=== PATIENT | male | born 2000 | race Caucasian/White ===

== ENCOUNTER 2022-06-06 11:32 | Emergency (ER) | payer OTHER, SELFPAY ==
--- NOTE | ~2022-06-06 | CT_ITS ---
EXAMINATION: CT abdomen pelvis wo IV con CLINICAL INFORMATION: Reason for Exam LLQ colicky pain COMPARISON: No prior CT available for comparison. TECHNIQUE: Multidetector volumetric imaging was performed from the superior aspect of the liver through the pubic symphysis a noncontrasted study. Sagittal and coronal reformatted images were obtained on the technologist's workstation. This CT examination was performed using dose optimization techniques as appropriate, variously including the following: *Automated exposure control *Adjustment of mA and/or kV according to patient size (this includes techniques or standardized protocols for targeted exams where dose is matched to indication/reason for exam; i.e. extremities or head) *Use of iterative reconstruction technique DLP: 589 mGy-cm FINDINGS: LOWER THORAX: Included lung bases are clear. HEPATOBILIARY: No focal hepatic lesions. No biliary ductal dilatation. GALLBLADDER: Gallbladder unremarkable. SPLEEN: Spleen is normal in size. PANCREAS: No focal mass or ductal dilatation. STOMACH AND GASTROINTESTINAL TRACT: Stomach is grossly unremarkable. There is no bowel distention or thickening. No CT evidence of appendicitis. ADRENALS: No adrenal nodules. KIDNEYS/URETERS: There is a 2 cm cyst middle pole left kidney not well characterized on this noncontrast CT, kidneys otherwise normal, no stone or hydronephrosis. URINARY BLADDER: Partially decompressed. PELVIC VISCERA: Unremarkable PERITONEUM: No free air or fluid. LYMPH NODES: No lymphadenopathy. VASCULAR:Abdominal aorta normal in size, no aneurysm found. BONES, ABDOMINAL WALL AND SOFT TISSUES: Age-appropriate changes of the spine and skeletal system, no destructive osteolytic or osteosclerotic bone lesion found CT/CT abdomen pelvis wo IV con IMPRESSION: * No CT evidence of acute intra-abdominal process to explain patient's pain symptoms. No evidence of bowel obstruction. No kidney stone or hydronephrosis. * There is 2 cm cyst middle pole left kidney not well characterized on this noncontrast CT scan, consider correlation with follow-up renal ultrasound.
--- NOTE | 2022-06-06 11:49 | ED_ITS ---
HPI - General Adult General Chief complaint: Abdominal Pain Stated complaint: N/V W/ABD PAIN SINCE AM Time Seen by Provider: 06/06/22 11:37 Source: patient Limitations: no limitations History of Present Illness HPI narrative: This is a 22-year-old male who states that he has had URI symptoms for few days with nasal congestion but no fever, no significant cough, mild sore throat. Patient today developed severe pain in his left lower abdomen which is constant but waxes and wane in intensity and has been associated nausea and vomiting. Patient noted his urine was dark this morning but he is not sure if there was any blood in it. 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 He denies any diarrhea. Pain is severe, not worse with movement. Related Data Allergies Allergy/AdvReac Type Severity Reaction Status Date / Time No Known Allergies Allergy Verified 06/06/22 11:43 Review of Systems Review of Systems: Patient is somewhat anxious and restless appearing, hyperventilating, flinching in anticipation of my palpating his abdomen Yes all other systems are reviewed and are negative Constitutional: Constitutional: Reports as per HPI and Denies fever(s) Eyes: Eyes: Reports as per HPI and Reports no additional eye complaints ENT: Reports as per HPI, Reports nasal congestion, Reports nasal discharge and Reports sore throat Cardiovascular: Cardiovascular: Reports as per HPI, Denies chest pain and Denies dyspnea Respiratory: Respiratory: Reports as per HPI, Denies cough and Denies dyspnea Gastrointestinal: Gastrointestinal: Reports as per HPI, Reports abdominal pain, Denies diarrhea, Reports nausea and Reports vomiting Genitourinary: Genitourinary: Reports as per HPI, Denies dysuria and Denies urinary frequency Comments: Urine dark this morning Musculoskeletal: Musculoskeletal: Reports no additional musculoskeletal complaints and Denies numbness Integumentary/Breasts: Skin/Breast: Reports as per HPI and Denies rash Neurologic: Reports as per HPI, Denies focal weakness and Denies numbness Psychiatric: Psychiatric: Reports no additional psychiatric complaints and Reports as per HPI Endocrine: Endocrine: Reports no additional endocrine complaints and Reports as per HPI Hematologic/Lymphatic: Hematologic/Lymphatic: Reports no additional hematologic/lymphatic complaints, Reports as per HPI and Reports other (No peripheral edema) [facility] Social History Social History Alcohol intake: never Smoked in Last 30 Days: No Use of substances other than those prescribed or required for medical reasons: No Advance Directives: No Physical Exam ED Vital Signs: Vital Signs - 24 hr 06/06/22 12:08 Temperature 98.6 F Pulse Rate 61 Respiratory Rate 18 Blood Pressure 106/48 L Pulse Oximetry 100 Oxygen Delivery Method Room Air BMI result Body Mass Index 27.3 Medications Administered Discontinued Medications Generic Name Dose Route Start Last Admin Trade Name Freq PRN Reason Stop Dose Admin Ketorolac Tromethamine 30 mg 06/06/22 11:43 06/06/22 12:24 Ketorolac Tromethamine 30 Mg/Ml Vial IVPUSH 06/06/22 11:44 30 mg ONCE ONE Administration Lorazepam 0.5 mg 06/06/22 11:43 06/06/22 12:25 Lorazepam 2 Mg/Ml Vial IVPUSH 06/06/22 11:44 0.5 mg ONCE ONE Administration Ondansetron HCl 4 mg 06/06/22 11:43 06/06/22 12:25 Ondansetron Hcl 4 Mg/2 Ml Vial IVPUSH 06/06/22 11:44 4 mg ONCE ONE Administration Medical Decision Making Medical Decision Making [facility] Narrative: Patient with URI symptoms, but he might have COVID, which she does. Patient also had severe left lower abdominal pain this morning, causing him to writhe in pain. Patient did have microscopic hematuria consistent with ureteral colic. CT scan did not show stone however the patient may have already passed the stone before CT scan was done, as patient had relief of his pain about that time. Patient was treated with Toradol 15 mg IV as well as lorazepam 1 mg IV. Patient had improvement in his symptoms, felt much better. Patient is young and healthy and Paxlovid is not indicated Differential Diagnosis Differential Diagnoses: The differential diagnosis associated with the presentation includes Renal colic, UTI, pyelonephritis, diverticulitis, anxiety Lab Data [facility] Lab Attestation statement: I reviewed the patient's lab results. Result Diagrams: 06/06/22 14:28 06/06/22 14:27 Labs: Lab Results 06/06/22 06/06/22 06/06/22 Range/Units 13:24 13:24 14:27 WBC (4.8-10.8) X10*3/uL RBC (4.60-5.80) X10*6/uL Hgb (14.0-18.0) g/dl Hct (42.0-52.0) % MCV (80.0-98.0) fL MCH (27.0-33.0) pg MCHC (31.0-36.0) g/dl RDW (11.0-16.0) % Plt Count (160-400) X10*3/uL MPV (9.4-12.4) fL Immature Gran % (Auto) (0.0-0.4) % Neut % (Auto) (45-73) % Lymph % (Auto) (20-40) % [place] % (Auto) (2-11) % Eos % (Auto) (0-4) % Baso % (Auto) (0-2) % Lymph # (Auto) (1.2-4.9) X10*3/uL [place] # (Auto) (0.1-1.2) X10*3/uL Eos # (Auto) (0.0-0.4) X10*3/uL Baso # (Auto) (0.0-0.2) X10*3/uL Abs Immat Gran (auto) (0.00-0.03) X10*3/uL Absolute Neuts (auto) (2.0-8.3) x10*3/uL Absolute Nucleated RBC (0.0-0.012) X10*3/uL Nucleated RBC % (auto) (0.0-0.2) /100WBC Sodium 142 (135-145) mmol/L Potassium 4.2 (3.3-5.1) mmol/L Chloride 108 (96-108) mmol/L Carbon Dioxide 26 (22-29) mmol/L Anion Gap 12 (12-20) BUN 11 (9-16) mg/dL Creatinine 0.82 (0.5-1.4) mg/dL Estim Creat Clear Calc 141.3 Estimated GFR > 60 Random Glucose 94 (60-115) mg/dL Calcium 9.7 (8.4-10.2) mg/dL Total Bilirubin 0.5 (0.0-1.0) mg/dL AST 17 (5-37) U/L ALT 20 (0-40) U/L Alkaline Phosphatase 53 (39-117) U/L Total Protein 7.0 (6.5-8.0) g/dL Albumin 4.5 (3.5-5.0) g/dL Urine Color Yellow Urine Appearance Clear Urine pH 8.5 (5.0-9.0) Ur Specific [place] 1.020 (1.005-1.025) Urine Protein Trace (Neg-Trace) mg/dL Urine Glucose (UA) Negative (Negative) mg/dL Urine Ketones Negative (Negative) mg/dL Urine Blood Moderate (2+) H (Negative) Urine Nitrite Negative (Negative) Ur Leukocyte Esterase Negative (Negative) Urine RBC >20 H (0-2) /HPF Urine WBC 6-10 H (0-5) /HPF Ur Squamous Epith Cells 0-2 (0-2) /HPF Urine Bacteria None Seen (None Seen) Hyaline Casts 0-2 (0-2) /LPF COVID-19 (ALESSANDRO) Positive A (Negative) COVID-19 Clin Com See Note 06/06/22 Range/Units 14:28 WBC 8.1 (4.8-10.8) X10*3/uL RBC 4.70 (4.60-5.80) X10*6/uL Hgb 13.3 L (14.0-18.0) g/dl Hct 39.5 L (42.0-52.0) % MCV 84.0 (80.0-98.0) fL MCH 28.3 (27.0-33.0) pg MCHC 33.7 (31.0-36.0) g/dl RDW 12.8 (11.0-16.0) % Plt Count 212 (160-400) X10*3/uL MPV 9.9 (9.4-12.4) fL Immature Gran % (Auto) 0.2 (0.0-0.4) % Neut % (Auto) 81.9 H (45-73) % Lymph % (Auto) 10.3 L (20-40) % [place] % (Auto) 7.3 (2-11) % Eos % (Auto) 0.1 (0-4) % Baso % (Auto) 0.2 (0-2) % Lymph # (Auto) 0.8 L (1.2-4.9) X10*3/uL [place] # (Auto) 0.6 (0.1-1.2) X10*3/uL Eos # (Auto) 0.0 (0.0-0.4) X10*3/uL Baso # (Auto) 0.0 (0.0-0.2) X10*3/uL Abs Immat Gran (auto) 0.02 (0.00-0.03) X10*3/uL Absolute Neuts (auto) 6.6 (2.0-8.3) x10*3/uL Absolute Nucleated RBC 0.000 (0.0-0.012) X10*3/uL Nucleated RBC % (auto) 0.0 (0.0-0.2) /100WBC Sodium (135-145) mmol/L Potassium (3.3-5.1) mmol/L Chloride (96-108) mmol/L Carbon Dioxide (22-29) mmol/L Anion Gap (12-20) BUN (9-16) mg/dL Creatinine (0.5-1.4) mg/dL Estim Creat Clear Calc Estimated GFR Random Glucose (60-115) mg/dL Calcium (8.4-10.2) mg/dL Total Bilirubin (0.0-1.0) mg/dL AST (5-37) U/L ALT (0-40) U/L Alkaline Phosphatase (39-117) U/L Total Protein (6.5-8.0) g/dL Albumin (3.5-5.0) g/dL Urine Color Urine Appearance Urine pH (5.0-9.0) Ur Specific [place] (1.005-1.025) Urine Protein (Neg-Trace) mg/dL Urine Glucose (UA) (Negative) mg/dL Urine Ketones (Negative) mg/dL Urine Blood (Negative) Urine Nitrite (Negative) Ur Leukocyte Esterase (Negative) Urine RBC (0-2) /HPF Urine WBC (0-5) /HPF Ur Squamous Epith Cells (0-2) /HPF Urine Bacteria (None Seen) Hyaline Casts (0-2) /LPF COVID-19 (ALESSANDRO) (Negative) COVID-19 Clin Com Radiology Impression Discussion of test interpretation with radiology: I have reviewed the radiologist's reading. Radiologist Impression: IMPRESSION: ? *? No CT evidence of acute intra-abdominal process to explain patient's pain symptoms. No evidence of bowel obstruction. No kidney stone or hydronephrosis. ? *? There is 2 cm cyst middle pole left kidney not well characterized on this noncontrast CT scan, consider correlation with follow-up renal ultrasound. Discharge Plan Discharge Clinical Impression: COVID-19, Ureterolithiasis Patient Disposition: Home, Self-Care Instructions: COVID-19 (Coronavirus Disease 2019) (ED) Additional Instructions: Drink plenty of fluids. You may have had a kidney stone which passed already, causing the severe but transient pain in her left lower abdomen. The blood in your urine is suggestive of this. CT scan did not show the stone but the stone may have already passed when the CT was done. You also have COVID. Quarantine at home for the next 5 days, then make sure to wear mask in public for an additional week. Use acetaminophen or ibuprofen for pain or fever.
[2022-06-06 12:08] VITALS: BP 106/48; PULSE 61; RESP 18; TEMP 37; O2SAT 100; BMI 27.3
[2022-06-06] MEDS: Ketorolac Tromethamine 30 MG/ML VIAL IVPUSH (12:24)
[2022-06-06] MEDS: ondansetron HCL 4 MG/2 ML VIAL IVPUSH (12:25)
[2022-06-06] MEDS: LORazepam 2 MG/ML VIAL 0.5 MG IVPUSH (12:25)
[2022-06-06 13:34] LABS: Appearance Urine Clear; Color Urine Yellow; Glucose Urine UA Negative (Negative); Leukocyte Esterase Urine Negative (Negative); Nitrite Urine Negative (Negative); PH 8.5 (5.0-9.0); UMIC TRIGGER UACC YES; Urine Blood Moderate (2+) (Negative); Urine Ketones Negative (Negative); Urine Protein Trace mg/dL (Neg-Trace)
[2022-06-06 13:37] LABS: Bacteria Urine None Seen (None Seen); Hyaline Casts Urine 0-2 /LPF (0-2); RBC Urine >20 /HPF (0-2); Squamous Epithelial Cell Urine 0-2 /HPF (0-2); UACC Culture Trigger YES
[2022-06-06 13:39] LABS: COVID-19 Test Positive (Negative); IDNOW Serial# 6674DD1D
[2022-06-06 14:36] LABS: MANUAL DIFF FLAG NO
[2022-06-06 14:37] LABS: Basophils Percent Auto 0.2 % (0-2); Eosinophils Percent Auto 0.1 % (0-4); Hematocrit 39.5 % (42.0-52.0); Hemoglobin 13.3 g/dl (14.0-18.0); Imm Gran Abs Auto 0.02 X10*3/uL (0.00-0.03); Imm Gran Pct Auto 0.2 % (0.0-0.4); Lymphocytes Absolute Auto 0.8 X10*3/uL (1.2-4.9); Lymphocytes Percent Auto 10.3 % (20-40); Mean Corpuscular HGB Conc 33.7 g/dl (31.0-36.0); Mean Corpuscular Hemoglobin 28.3 pg (27.0-33.0); Mean Platelet Volume 9.9 fL (9.4-12.4); Monocytes Absolute Auto 0.6 X10*3/uL (0.1-1.2); Monocytes Percent Auto 7.3 % (2-11); Neutrophils Absolute Auto 6.6 x10*3/uL (2.0-8.3); Neutrophils Percent Auto 81.9 % (45-73); Platelet Count 212 X10*3/uL (160-400); Red Cell Distribution Width 12.8 % (11.0-16.0); White Blood Count 8.1 X10*3/uL (4.8-10.8)
[2022-06-06 15:00] LABS: Alanine Aminotransferase 20 U/L (0-40); Albumin Level 4.5 g/dL (3.5-5.0); Alkaline Phosphatase 53 U/L (39-117); Anion Gap 12 (12-20); Aspartate Amino Transferase 17 U/L (5-37); Bilirubin Total 0.5 mg/dL (0.0-1.0); Blood Urea Nitrogen 11 mg/dL (9-16); Calcium 9.7 mg/dL (8.4-10.2); Carbon Dioxide 26 mmol/L (22-29); Chloride 108 mmol/L (96-108); Creatinine Clr Calc Pharmacy 141.3; Estimated Glomerular Filt Rate > 60; Glucose Random 94 mg/dL (60-115); Potassium 4.2 mmol/L (3.3-5.1); Sodium 142 mmol/L (135-145)
== END 2022-06-06 15:29 | disposition home or self-care (01) ==
PROVIDERS: Emergency Provider Emergency Medicine; PCP Pediatrics
DX: U07.1 COVID-19 (principal); N20.1 Calculus of ureter
CPT/HCPCS: 36415; 74176; 80053; 81001; 85025; 87086; 87635; 96374; 96375; 99284; J1885; J2060; J2405

== ENCOUNTER 2024-07-11 07:49 | Outpatient (AMB) | payer OTHER, SELFPAY ==
--- OUTSIDE RECORDS SUMMARY | 2024-07-11 07:51 | XMS_ITS | Clinical Summary ---
Author Organization [facility] Address [address] [place] [id number] Phone Care Team Providers Care Take Off Man Name Role Phone Unavailable Primary Care Provider Unavailabl e Allergies No known active allergies Medications Chlorpheniramine Maleate (ALLERGY PO) Take by mouth. Active Immunizations Name Administration Dates Next Due DTaP 12/02/2005, 2,2000,09/23,2000 HPV Vaccine 9 Valent 09/05/2015 HPV, Quadrivalent 08/29/2014,06/25/2014 Hep A, ped/adol 09/13/2018,09/09/2017 Hep B, ped/adol 02/22/2001,2000,2000 Hib (PRP-T) 08/25/2001, 1,2000,07/30 IPV 12/02/2005, 1,2000,07/30 Influenza, injectable, quadrivalent 02/2019,09/05/2015,06/25/2014,06/23,06/01/2011 Influenza, injectable, quadr ivalent, preservative free 02/09/2020 Influenza, injectable, triva lent, preservative free 05/03/2002 MMR 07/01/2004,05/27/2001 Meningococcal Conj (Menactra) MCV4P 09/09/2017,1 08/02/2010 Pneumococcal Conjugate 08/25/2001,2000,2000,07/30 Tdap 06/01/2011 Varicella 12/07/2007,05/27/2001 Family History Medical History Relation Name Comments No Known Problems Brother 1 Cayden No Known Problems Brother 2 Umang Asthma Father Prostate cancer Father No Known Problems Father's Brother No Known Problems Father's Sister Brain Aneurysm Maternal Grandmother Aneurysm Mother carotid anurisi m 09/04/16 with good recovery some memory issues Hypertension Mother Lung cancer Paternal Grandfather Breast cancer Paternal Grandmother Colon cancer Paternal Grandmother Relation Name Status Comments Brother 1 Cayden Alive Brother 2 Umang Alive Father Alive Father's Brother Alive Father's Sister Alive Maternal Grandfather goodpas ture syndrome age: 74 Maternal Grandmother Alive Mother Alive hypertension; c arotid anurisim 09/04/16 with good recovery some memory issues diagnosed with Asthma, unspecified Paternal Grandfather Paternal Grandmother Social History Tobacco Use Types Packs/Day Years Used Date Smoking Tobacco: Never Smokeless Tobacco: Never Alcohol Use Standard Drinks/Week Comments Never 0 (1 standard drink = 0.6 oz pur e alcohol) Hunger/Food Answer Date Recorded In the last 12 months, did y ou or your family ever eat less than you felt you should because there wasn't enough money for food? No 02/09/2020 Stable Housing Answer Date Recorded Are you worried that in the next 2 months you may not have stable housing? No 02/09/2020 Transportation Concerns Answer Date Rec orded In the last 12 months, have you or your family ever had to go without healthcare because you didn't have a way to get there? No 02/09/2020 Hazards in Home Answer Date Recorded Think about the place you li ve. Do you have problems with any of the following? Pests (mice or roaches), mold, no/not working smoke detectors, water leaks, no window guards. No 2019 Financing Utilities Answer Date Recorde d In the last 12 months, has t he electric, gas, oil, or water company threatened to shut off your services in your home? No 02/09/2020 Safety at Home Answer Date Recorded Are you or your family worried about feeling saf e in your home? No 02/09/2020 Outside Support Answer Date Recorded Do you feel that you need mo re support from other people or programs to help you care for yourself or your family? No 02/09/2020 Understanding Health Concerns Answer Da te Recorded Do you need help understandi ng your or your child's healthcare needs (diagnosis, medications, plan, etc.)? No 02/09/2020 Financing Health Concerns Answer Date R ecorded In the last 12 months, was t here a time when your child needed to see a doctor or get medications or supplies but could not because of cost? No 02/09/2020 Missing School or Work Answer Date Zach rded Did you or your child miss s chool or work because of a health problem that could have been avoided? No 02/09/2020 Sex and Gender Information Value Date Recorded Sex Assigned at Male 02/09/2020 9:45 AM EDT Legal Sex Male 6:09 PM EDT Gender Identity Male 02/09/2020 9:45 AM EDT Sexual Orientation Lesbian or Ramey 02/09/2020 9: 45 AM EDT Last Filed Vital Signs Vital Sign Reading Time Taken Comments Blood Pressure 120/50 02/09/2020 8:30 AM EDT Pulse - - Temperature 36.2 ??C (97.1 ??F) 06/23/2013 12:[address] Respiratory Rate - - Oxygen Saturation - - Inhaled Oxygen Concentration - - Weight 88.1 kg (194 lb 3.2 oz) 02/09/2020 8:30 A M EDT Height 175.9 cm (5' 9.25 ) 02/09/2020 8:30 AM ED T Body Mass Index 28.47 02/09/2020 8:30 AM EDT Plan of Treatment Health Maintenance Due Date Last Done Comments DTaP,Tdap,and Td Vaccines (7 - Td or Tdap) 06/01/2021 06/01/2011, 12/02/2005, 08/25/2001, Additional history exists Influenza Vaccines (#1) 2024 02/09/20, 09/13/2018, 09/05/2015, Additional history exists COVID-19 Vaccine ( season) 2024 Hepatitis B Vaccines Completed 02/22/2001, 2000, 2000 HIB Vaccines Completed 08/25/2001, 11/05, 2000, Additional history exists Pneumococcal Vaccine Completed 08/25/2001, 2000, 2000, Additional history exists MMR Vaccines Completed 07/01/2004, 05/27/2001 IPV Vaccines Completed 12/02/2005, 02/05, 2000, Additional history exists Varicella Vaccines Completed 12/07/2007, 05/27/2001 HPV Vaccines Completed 09/05/2015, 08/06, 06/25/2014 Meningococcal Vaccine Completed 09/09/2017, 011 Hepatitis A Vaccines Completed 09/13/2018, 09/10/19 18 Men B Vaccine Aged Out No longer elig ible based on patient's age to complete this topic Insurance [facility] NON PCC
--- OUTSIDE RECORDS SUMMARY | 2024-07-11 07:51 | XMS_ITS | Encounter Summary ---
Author Organization [facility] Address [address] [place] [id number] Phone Care Team Providers Care Chain Puller Name Role Phone Jose L Thomas MD Primary Care Provider Encounter Details Date Type Department Care Team (Late st Contact Info) Description 10/24/2017 Conversion Encounter [facility] [address] [place] [address] Social History Tobacco Use Types Packs/Day Years Used Date Smoking Tobacco: Never Assessed Sex and Gender Information Value Date Recorded Sex Assigned at Male 02/09/2020 9:45 AM EDT Legal Sex Male 6:09 PM EDT Gender Identity Male 02/09/2020 9:45 AM EDT Sexual Orientation Lesbian or Ramey 02/09/2020 9: 45 AM EDT documented as of this encounter Plan of Treatment Not on file documented as of this encounter Visit Diagnoses Not on filedocumented in this encounter Care Teams Chain Puller Relationship Specialty Start Date End Date Jose L Thomas MD [address] [place] [address] PCP - General Pediatrics 09/13/18 04/17/24 documented as of this encounter
[2024-07-11 08:15] VITALS: BP 114/78; PULSE 74; O2SAT 98; BMI 35.6
--- NOTE | 2024-07-11 08:15 | MHC.PC.OV ---
Vital Signs 07/11/24 08:15 Height 5 ft 9 in Weight 241 lb BMI 35.6 BP 114/78 Blood Pressure Location Lt brachial Position Sitting Pulse 74 Pulse Source Pulse Oximeter Pulse Oximetry (%) 98 Oxygen Delivery Method Room Air Intake Visit Reasons: establish care Second Baller Required: No Allergies No Known Allergies Allergy (Verified 07/11/24 08:28) Medication List - Last Reconciled 07/11/24 by Rafaela Ramirez PA-C venlafaxine ER (Effexor XR) 75 mg PO DAILY Tobacco use date assessed: 07/11/24 Dental Screening Dental Screen Date: 07/11/24 Did you have a dental visit in the last 12 months?: Yes Did you have a dental problem in the last 6 months where you did not have access to dental care?: No Was dental information given to patient?: Patient has dentist HPI establish care HPI Details 24-year-old male coming to the office for the 1st time. [place] [facility] [place] last seen 04/2023. He follows with [facility] every 2 months for management of Effexor and has a counselor through his school ([facility]) that he sees every 2 weeks. He feels he is doing well on the Effexor and has tried Zoloft in the past but had side effects to this medication. He recently saw the dentist and was concerned about a foreign body feeling in his left tonsil and does have a history of tonsil stones and tonsillitis. The foreign body feeling has been present for two months and is worse with eating. Denies any difficulty or painful swallowing. [facility] Family History Mother Diabetes Brain aneurysm Father No problems noted. Brother No problems noted. Brother No problems noted. Other Mental health disorder Substance use disorder Social History Housing: Apartment Alcohol intake: never Patient Tobacco Use Status: Never used Tobacco Tobacco use type: Cigarette e-Cigarette/Vaping Use: Currently Using Second Hand Smoke Exposure: Yes service: No Current occupational status: employed Current occupation: [employer] Current occupational exposures/hazards: No Cognitive needs: No Hearing needs: No Vision needs: Yes Questionnaire PHQ-9 Over the last 2 weeks, how often have you been bothered by any of the following problems? 1. Little interest or pleasure in doing things: not at all 2. Feeling down, depressed, or hopeless: several days 3. Trouble falling or staying asleep, or sleeping too much: not at all 4. Feeling tired or having little energy: several days 5. Poor appetite or overeating: several days 6. Feeling bad about yourself - or that you are a failure or have let yourself or your family down: several days 7. Trouble concentrating on things, such as reading the newspaper or watching television: not at all 8. Moving or speaking so slowly that other people could have noticed. Or the opposite - being so fidgety or restless that you have been moving around a lot more than usual: not at all 9. Thoughts that you would be better off or of hurting yourself in some way: not at all Total score: 4 Depression Screening Interpretation: Positive Depression Screening Follow-up: Existing condition and In treatment Depression Screening Done: Yes 57301 - PHQ-9 Billing: Yes Source: Developed by Drs. Jose L Abreu, Lana Traore, Randy Munson and colleagues, with an educational tariq from [employer]. Thrive Questionnaire Date Thrive assessed: 07/11/24 I am a: Patient What is your living situation today?: I have a steady place to live Within the past 12 months, did the food you bought not last and you didn't have the money to get more?: Never true Within the past 12 months, did you worry whether your food would run out before you got money to buy more?: Never true Do you have trouble paying for medicines?: No Do you have trouble getting transportation to medical appointments?: No Do you have trouble paying your heating and electricity bill?: No Do you have trouble taking care of your child, family member or friend?: No Do you have trouble with day-to-day activities such as bathing, preparing meals, shopping, managing finances, etc.?: No Are you currently unemployed and looking for a job?: No Are you interested in more education?: No Please select the resources that you would like help with: None Currently or been in a relationship where the following occur: No concerns reported THRIVE Score: 0 AUDIT C Alcohol Use Questionnaire (AUDIT-C) 1. How often do you have a drink containing alcohol?: Monthly or less 2. How many drinks containing alcohol do you have on a typical day when you are drinking?: 1 or 2 3. How often do you have six or more drinks on one occasion?: Less than monthly Total Score: 2 ROBERTA-7 AMB Questionnaire ROBERTA-7 Date ROBERTA - 7 assessed: 07/11/24 Feeling nervous, anxious, or on edge: 1 = Several days Not being able to stop or control worryin = Several days Worrying too much about different things: 1 = Several days Trouble relaxin = Several days Being so restless that it is hard to sit still: 1 = Several days Becoming easily annoyed or irritable: 1 = Several days Feeling afraid as if something awful might happen: 1 = Several days Total ROBERTA-7 score (0-4 normal; 5-9 mild; 10-14 moderate; 15-21 severe): 7 Source: Developed by Drs. Jose L Abreu, Lana Traore, Randy Munson and colleagues, with an educational tariq from [employer]. ROBERTA-7 Assessment Billing ROBERTA-7 Assessment Tool: ROBERTA-7 Assessment 44366 Review of Systems Const Denies body aches, Denies chills, Denies fever(s), Denies headache(s) and Denies poor appetite Eyes Reports no additional complaints ENT Denies dysphagia, Denies dizziness, Denies headache(s) and Denies odynophagia Card Denies chest pain, Denies lightheadedness and Denies dyspnea Resp Denies cough and Denies dyspnea GI Denies abdominal pain, Denies dysphagia, Denies nausea, Denies odynophagia and Denies vomiting Reports no additional complaints Musc Reports no additional complaints and Denies abnormal gait Skin/Breast Reports system reviewed and no additional complaints, except as documented Neuro Denies abnormal gait, Denies dizziness and Denies headache(s) Psych Reports no additional complaints Physical exam (Primary Care) Vital Signs: Last Vital Signs Pulse 74 07/11/24 08:15 BP 114/78 07/11/24 08:15 Pulse Ox 98 07/11/24 08:15 Oxygen Delivery Method Room Air 07/11/24 08:15 BMI result Body Mass Index 35.6 Tobacco/Smoking Status: Tobacco use Status Tobacco use date assessed 07/11/24 07/11/24 08:22 Patient Tobacco Use Status Never used Tobacco 07/11/24 08:22 Tobacco use type Cigarette 07/11/24 08:22 e-Cigarette/Vaping Use Currently Using 07/11/24 08:22 PHQ-9: PHQ-9 Score PHQ-9: Total score 4 07/11/24 08:22 Depression Screening Interpretation: Positive Depression Screening Follow-up: Existing condition and In treatment Thrive Assessment: Date of Thrive Assessment Date Thrive assessed 07/11/24 07/11/24 08:22 Currently or been in a relationship where the following occur: No concerns reported Const General: cooperative, healthy appearing, comfortable and no acute distress Orientation/consciousness: patient oriented x3 HENMT Head: Yes normocephalic Ears: hearing grossly normal bilaterally General nose exam: Normal external nose present Mouth: Normal oral and palatal mucosa present and oropharynx normal Teeth and gingiva: dentition normal Throat: Yes posterior oropharynx normal and Yes tonsils normal (Grade II no visualized stones) Eyes General: appearance normal, both eyes and all related structures Conjunctivae: conjunctivae normal Neck Neck: Yes full ROM and Yes no lymphadenopathy Resp Effort & Inspection: normal respiratory effort Auscultation: clear to auscultation bilaterally, no crackles, no rales, no rhonchi and no wheezes Cardio Rate: regular rate Rhythm: regular rhythm Skin General skin exam: no rashes or lesions noted Neuro General: patient oriented x3 Gait exam (Neuro): Normal gait present Extrem General: Yes normal to inspection, Yes full ROM and No edema Psych Affect: normal affect Attitude: cooperative Insight: Good insight present (Psych) Judgement: Good judgement present (Psych) Coding Level of Care Code New Pt Level 4 (33967) Diagnoses Anxiety F41.9 Depression F32.A Obesity (BMI 30-39.9) E66.9 Tonsil stone J35.8 Additional Codes ROBERTA-7 Assessment Billing - ROBERTA-7 Assessment Tool: ROBERTA-7 Assessment 72510 ([id number]) PHQ-9 - 17137 - PHQ-9 Billing: Yes ([id number]) Assessment & Plan Assessment & Plan (1) Anxiety: Comment: [facility] every 2 months, counselor every 2 weeks ([facility]) Code(s): F41.9 - Anxiety disorder, unspecified Category: Medical Plan: Feels well managed on Effexor and counselor. Symptoms are well managed at this time. (2) Depression: Comment: [facility] every 2 months, counselor every 2 weeks ([facility]) Code(s): F32.A - Depression, unspecified Category: Medical Plan: Feels well managed on Effexor and counselor. Symptoms are well managed at this time. (3) Obesity (BMI 30-39.9): Code(s): E66.9 - Obesity, unspecified Category: Medical Plan: Healthy diet and regular exercise is encouraged. (4) Tonsil stone: Code(s): J35.8 - Other chronic diseases of tonsils and adenoids Category: Medical Plan: No tonsil stones seen on exam today. Advised patient to try salt water gargles and practice good oral hygiene. Also advised patient can use blunt syringe with warm water to gently flush the tonsils as needed. Offered ENT referral which was declined at this time. If patient would like referral can place one going forward. Plan Will plan to have blood work done and follow up in 6 months for annual exam. Patient to follow up sooner if new problems arise. This note was constructed using voice recognition software. While every effort has been made to ensure accuracy and curbing stonecutter, still areas may have been included sometimes these areas may affect the content or meeting of the given symptoms. Total time spent caring for the patient today was 30 minutes. This includes time spent before the visit reviewing the chart, time spent during the visit, and time spent after the visit and documentation. Orders: Orders Comprehensive Met. Panel Today Z00.00 - Encounter for general adult medical examination without abnormal findings Complete Blood Count Auto Diff Today Z00.00 - Encounter for general adult medical examination without abnormal findings Vitamin D 25-OH Total Today Z00.00 - Encounter for general adult medical examination without abnormal findings TSH reflex Free T4 Today Z00.00 - Encounter for general adult medical examination without abnormal findings Free T4 (Free Thyroxine) Today Z00.00 - Encounter for general adult medical examination without abnormal findings Vitamin B12 and Folate Today Z00.00 - Encounter for general adult medical examination without abnormal findings
== END 2024-07-11 08:44 | disposition home or self-care (01) ==
DX: J35.8 Other chronic diseases of tonsils and adenoids (principal); F41.9 Anxiety disorder, unspecified; E66.9 Obesity, unspecified; Z68.35 Body mass index [BMI] 35.0-35.9, adult; F32.A Depression, unspecified

== ENCOUNTER → 2024-07-11 07:49 | Outpatient (BNVA) | payer OTHER, SELFPAY | DX: F41.9 Anxiety disorder, unspecified (principal); F32.A Depression, unspecified; E66.9 Obesity, unspecified; J35.8 Other chronic diseases of tonsils and adenoids | CPT/HCPCS: 96127; 99202 ==

== ENCOUNTER 2024-07-11 08:58 | Outpatient (REF) | payer OTHER, SELFPAY ==
[2024-07-11 10:23] LABS: MANUAL DIFF FLAG NO
[2024-07-11 10:52] LABS: Basophils Percent Auto 0.6 % (0-2); Eosinophils Absolute Auto 0.1 X10*3/uL (0.0-0.4); Hemoglobin 14.8 g/dl (14.0-18.0); Imm Gran Abs Auto 0.02 X10*3/uL (0.00-0.03); Imm Gran Pct Auto 0.3 % (0.0-0.4); Lymphocytes Absolute Auto 2.1 X10*3/uL (1.2-4.9); Lymphocytes Percent Auto 31.4 % (20-40); Mean Corpuscular HGB Conc 33.6 g/dl (31.0-36.0); Mean Corpuscular Hemoglobin 28.7 pg (27.0-33.0); Mean Corpuscular Volume 85.3 fL (80.0-98.0); Mean Platelet Volume 9.9 fL (9.4-12.4); Monocytes Absolute Auto 0.6 X10*3/uL (0.1-1.2); Monocytes Percent Auto 8.8 % (2-11); Neutrophils Absolute Auto 3.7 x10*3/uL (2.0-8.3); Neutrophils Percent Auto 56.9 % (45-73); Platelet Count 298 X10*3/uL (160-400); Red Blood Count 5.16 X10*6/uL (4.60-5.80); Red Cell Distribution Width 12.5 % (11.0-16.0); White Blood Count 6.6 X10*3/uL (4.8-10.8)
[2024-07-11 11:23] LABS: Alanine Aminotransferase 71 U/L (0-40); Albumin Level 4.5 g/dL (3.5-5.0); Alkaline Phosphatase 65 U/L (39-117); Anion Gap 15 (12-20); Aspartate Amino Transferase 44 U/L (5-37); Bilirubin Total 0.3 mg/dL (0.0-1.0); Blood Urea Nitrogen 10 mg/dL (9-16); Calcium 9.5 mg/dL (8.4-10.2); Carbon Dioxide 29 mmol/L (22-29); Chloride 103 mmol/L (96-108); Estimated Glomerular Filt Rate > 60; Free T4 (Free Thyroxine) 0.84 ng/dL (0.71-1.85); Glucose Random 101 mg/dL (60-115); Potassium 4.4 mmol/L (3.3-5.1); Sodium 143 mmol/L (135-145); TSH reflex Free T4 1.13 uIU/mL (0.32-4.0); Total Protein 7.7 g/dL (6.5-8.0)
[2024-07-11 11:35] LABS: Folate 11.5 ng/mL (> or = 4.0); Vitamin B12 331 pg/mL (200-900)
[2024-07-11 12:34] LABS: HBc Num1 0.09 S/CO (0.00-0.79); HBsAGNum1 0.38 S/CO (0.00-0.99); Hepatitis B Core Antibody Nonreactive (Nonreactive); Hepatitis B Surface Antigen Negative (Negative); ~HepC Num1 0.11 S/CO (0.00-0.79); ~Hepatitis B Surface Antibody NONREACTIVE (Nonreactive); ~Hepatitis C Antibody Nonreactive (Nonreactive)
== END 2024-07-11 08:59 | disposition home or self-care (01) ==
LOC: HO.10HDL 08:58
DX: Z00.00 Encounter for general adult medical examination without abnormal findings (principal); R79.89 Other specified abnormal findings of blood chemistry
CPT/HCPCS: 36415; 80053; 82306; 82607; 82746; 84439; 84443; 85025; 86704; 86706; 86803; 87340

== ENCOUNTER 2024-08-03 08:58 | Outpatient (REF) | payer OTHER, SELFPAY ==
--- NOTE | ~2024-08-03 | US_ITS ---
CLINICAL HISTORY: R79.89 - Other specified abnormal findings of blood chemistry US abdomen complete with duplex and color Doppler Comparison: None Findings: The visualized pancreas, aorta, and inferior vena cava are unremarkable. Liver normal size and mildly echogenic Right lobe 16.3 cm length. No focal hepatic masses. Common duct 1.6 mm diameter. Physiologic distention of the gallbladder. No gallstones or sludge. No gallbladder wall thickening. No pericholecystic fluid. No sonographic Martin sign. Main portal vein antegrade. Right kidney normal size, 11.9 cm in length. Normal cortical width and echotexture. No solid or cystic renal masses. Equivocal 3 mm nonobstructing caliceal stone midpole Left kidney normal, 11.7 cm in length. Normal cortical width and echotexture. Renal cortical cyst upper pole measuring 1.9 x 2.4 x 2.1 cm.No nephrolithiasis or hydronephrosis. Spleen measures 11.6 cm. No splenic masses. No ascites. No lymphadenopathy. Impression: 1. Hepatic steatosis. 2. Nephrolithiasis on the right. 3. Benign renal cortical cyst left kidney. This document has been electronically signed by: Poncho Pinto MD on 08/03/2024 10:48:01
--- OUTSIDE RECORDS SUMMARY | 2024-08-03 09:35 | XMS_ITS | Encounter Summary ---
Author Organization [facility] Address [address] [place], [place] [id number] Phone Care Team Providers Care Filing Machine Operator Name Role Phone Jose L Thomas MD Primary Care Provider [phone] Encounter Details Date Type Department Care Team (Late st Contact Info) Description 10/24/2017 Conversion Encounter [facility] [address] [place] [address] Social History Tobacco Use Types Packs/Day Years [...] on filedocumented in this encounter Care Teams Filing Machine Operator Relationship Specialty Start Date End Date Jose L Thomas MD [address] [place] [address] PCP - General Pediatrics 09/13/18 04/17/24 documented as of this encounter
--- OUTSIDE RECORDS SUMMARY | 2024-08-03 09:35 | XMS_ITS | Clinical Summary ---
Author Organization [facility] Address [address] [place] [phone] Phone Care Team Providers Care Environmental Geologist Name Role Phone Unavailable Primary Care Provider Unavailabl e Allergies No known active allergies Medications Chlorpheniramine Maleate (ALLERGY PO) Take by mouth. Active Immunizations Immunization Administration Dates Next Due DTaP 12/02/2005, 2,2000,09/23,2000 [...] patient's age to complete this topic Insurance [facility] NON PCC
== END 2024-08-03 08:59 | disposition home or self-care (01) ==
LOC: HO.HMGCX 08:58
DX: R79.89 Other specified abnormal findings of blood chemistry (principal)
CPT/HCPCS: 76700

== ENCOUNTER → 2024-08-03 08:59 | Outpatient (BNV) | payer OTHER, SELFPAY | PROVIDERS: Visit Provider Radiology Diagnostic Radiology | DX: K76.0 Fatty (change of) liver, not elsewhere classified (principal); N20.0 Calculus of kidney; N28.1 Cyst of kidney, acquired | CPT/HCPCS: 76700 ==

== ENCOUNTER 2024-11-01 09:07 | Outpatient (REF) | payer OTHER, SELFPAY ==
--- OUTSIDE RECORDS SUMMARY | 2024-11-01 09:40 | XMS_ITS | Clinical Summary ---
Author Organization [facility] Address [address] [place] [phone] Phone Care Team Providers Care Ic Designer Custom Name Role Phone Unavailable Primary Care Provider [...] patient's age to complete this topic Insurance [facility] NON PCC
[2024-11-04 15:28] LABS: TS Negative Control Passed; TS Panel A 0; TS Panel B 0; TS Positive Control Passed; TSpotTB Negative (Negative)
== END 2024-11-01 09:08 | disposition home or self-care (01) ==
LOC: HO.HMGCLDS 09:07
DX: Z00.00 Encounter for general adult medical examination without abnormal findings (principal)
CPT/HCPCS: 36415; 86481

== ENCOUNTER 2024-11-07 10:56 | Outpatient (REF) | payer OTHER, SELFPAY ==
--- OUTSIDE RECORDS SUMMARY | 2024-11-07 12:32 | XMS_ITS | Clinical Summary ---
Author Organization [facility] Address [address] [place] [phone] Phone Care Team Providers Care Projects Manager Name Role Phone Unavailable Primary Care Provider [...] patient's age to complete this topic Insurance [facility] NON PCC
[2024-11-08 04:53] LABS: Hepatitis B Surface Ab Qnt <5 mIU/mL (> OR = 10)
== END 2024-11-07 10:57 | disposition home or self-care (01) ==
LOC: HO.HMGCLDS 10:56
DX: Z00.00 Encounter for general adult medical examination without abnormal findings (principal)
CPT/HCPCS: 36415; 86317

== ENCOUNTER 2024-12-06 11:41 | Outpatient (AMB) | payer OTHER, SELFPAY ==
--- NOTE | 2024-12-06 11:49 | AM.OFFVISNUR ---
Intake Visit Reasons: Hep B vaccine Allergies No Known Allergies Allergy (Verified 07/11/24 08:28) Immunizations Recombivax HB (PF) 10 mcg/mL intramuscular suspension Performing Provider: Rafaela Ramirez PA-C [facility] [place] [facility] Administered by: Tarah Michael LPN on 12/06/24 11:49 Dose Route Admin Location Dispensed Lot Number Expiration Date [facility] Data Control Clerk 1 mL IM Left Deltoid 1 mL [id number] 01/02/27 66323-157-49 [employer] Total Dispensed Waste 1 mL 0 % VIS Given Date VIS Provided VIS Publication Date 12/06/24 Single Vaccine 22 Eligibility Eligibility Date Funding Source Not [facility] Eligible 12/06/24 Private Assessment & Plan Assessment & Plan Orders: Orders Hepatitis B Adult Immunization Today Z23 - Encounter for immunization Coding
--- OUTSIDE RECORDS SUMMARY | 2024-12-06 12:28 | XMS_ITS | Clinical Summary ---
Author Organization [facility] Address [address] [place] [phone] Phone Care Team Providers Care Case Filler Name Role Phone Unavailable Primary Care Provider [...] AM EDT Pulse - - Temperature 36.2 C (97.1 F) 06/23/2013 12:00 AM EST Respiratory Rate - - Oxygen Saturation - [...] 06/01/2021 06/01/2011, 12/02/2005, 08/25/2001, Additional history exists COVID-19 Vaccine ( season) 2024 Influenza Vaccines (#1) 2025 02/09/20 20, 09/13/2018, 09/05/2015, Additional history exists Hepatitis B Vaccines Completed 02/22/2001, 2000, 2000 [...] patient's age to complete this topic Insurance [facility] NON [facility]
== END 2024-12-06 11:51 | disposition home or self-care (01) ==
LOC: HO.HMCH 11:42
DX: Z23 Encounter for immunization (principal)

== ENCOUNTER → 2024-12-06 11:41 | Outpatient (BNVA) | payer OTHER, SELFPAY | DX: Z23 Encounter for immunization (principal) | CPT/HCPCS: 90471; 90746 ==

== ENCOUNTER 2025-01-08 07:50 | Outpatient (AMB) | payer OTHER, SELFPAY ==
--- OUTSIDE RECORDS SUMMARY | 2025-01-08 07:53 | XMS_ITS | Clinical Summary ---
Author Organization [facility] Address [address] [place] [phone] Phone Care Team Providers Care Assisted Living Coordinator Name Role Phone Unavailable Primary Care Provider [...] patient's age to complete this topic Insurance [facility] NON [facility]
--- NOTE | 2025-01-08 08:12 | MHC.PC.OV ---
Vital Signs 01/08/25 08:13 01/08/25 08:33 Height 5 ft 9 in Weight 223 lb 4 oz BMI 33.0 BP 140/64 H 118/66 Blood Pressure Location Lt brachial Lt brachial Position Sitting Sitting Pulse 76 Pulse Source Pulse Oximeter Temp 97.1 F Temp Source Temporal Artery Scan Pulse Oximetry (%) 96 Oxygen Delivery Method Room Air Intake Visit Reasons: Annual Exam Intake Note: Patient is here today for a physical. Keno Attendant Required: No Water Proofer: Not Required per policy Accompanied by: Self / Same As Patient Allergies No Known Allergies Allergy (Verified 01/08/25 08:15) Medication List - Last Reconciled 01/08/25 by Rafaela Ramirez PA-C cholecalciferol (vitamin D3) 25 mcg PO DAILY venlafaxine ER (Effexor XR) 75 mg PO DAILY Tobacco use date assessed: 01/08/25 Dental Screening Dental Screen Date: 07/11/24 HPI Annual Exam HPI Details 24-year-old male with past medical history of depression, anxiety, fatty liver last seen 07/2024 coming in for annual exam. Fatty liver disease was identified following elevated liver function tests and an ultrasound in July, which showed fatty infiltration of the liver. The patient has been advised to focus on diet and exercise to manage this condition. The patient has a history of kidney stones, with a 3-mm nonobstructing stone identified in the right kidney. He was hospitalized in June 2021 for passing a kidney stone but has not followed up with a urologist since then. The patient is advised to maintain adequate hydration to facilitate the passage of the stone. The patient reports a bruise on the left big toe, which started as a bruise and began peeling, possibly due to a minor injury at work. The toe showed signs of swelling and pain initially, but these symptoms have mostly resolved. eye doctor: seeing in 2 weeks Vaccines: WID [facility] Surgical History No pertinent past surgical history Family History Mother Diabetes Brain aneurysm Father No problems noted. Brother No problems noted. Brother No problems noted. Other Mental health disorder Substance use disorder Social History Housing: Apartment Alcohol intake: current Alcohol intake frequency: holidays/special occasions only Patient Tobacco Use Status: Never used Tobacco Tobacco use type: Cigarette e-Cigarette/Vaping Use: Former Use Second Hand Smoke Exposure: Yes service: No Current occupational status: employed Current occupation: [employer] Current occupational exposures/hazards: No Cognitive needs: No Hearing needs: No Vision needs: Yes Questionnaire PHQ-9 Over the last 2 weeks, how often have you been bothered by any of the following problems? 1. Little interest or pleasure in doing things: not at all 2. Feeling down, depressed, or hopeless: several days 3. Trouble falling or staying asleep, or sleeping too much: not at all 4. Feeling tired or having little energy: several days 5. Poor appetite or overeating: several days 6. Feeling bad about yourself - or that you are a failure or have let yourself or your family down: several days 7. Trouble concentrating on things, such as reading the newspaper or watching television: not at all 8. Moving or speaking so slowly that other people could have noticed. Or the opposite - being so fidgety or restless that you have been moving around a lot more than usual: not at all 9. Thoughts that you would be better off or of hurting yourself in some way: not at all Total score: 4 Depression Screening Interpretation: Positive Depression Screening Follow-up: Existing condition and In treatment Depression Screening Done: Yes 77520 - PHQ-9 Billing: Yes Source: Developed by Drs. Jose L Abreu, Lana Traore, Randy Munson and colleagues, with an educational tariq from [employer]. Thrive Questionnaire Date Thrive assessed: 07/06/24 I am a: Patient What is your living situation today?: I have a steady place to live Within the past 12 months, did the food you bought not last and you didn't have the money to get more?: Never true Within the past 12 months, did you worry whether your food would run out before you got money to buy more?: Never true Do you have trouble paying for medicines?: No Do you have trouble getting transportation to medical appointments?: No Do you have trouble paying your heating and electricity bill?: No Do you have trouble taking care of your child, family member or friend?: No Do you have trouble with day-to-day activities such as bathing, preparing meals, shopping, managing finances, etc.?: No Are you currently unemployed and looking for a job?: No Are you interested in more education?: No Please select the resources that you would like help with: None Currently or been in a relationship where the following occur: No concerns reported THRIVE Score: 0 AUDIT C Alcohol Use Questionnaire (AUDIT-C) 1. How often do you have a drink containing alcohol?: Monthly or less 2. How many drinks containing alcohol do you have on a typical day when you are drinking?: 1 or 2 3. How often do you have six or more drinks on one occasion?: Less than monthly Total Score: 2 Score Reviewed/Action Taken: Yes ROBERTA-7 AMB Questionnaire ROBERTA-7 Date ROBERTA - 7 assessed: 07/11/24 Feeling nervous, anxious, or on edge: 1 = Several days Not being able to stop or control worryin = Several days Worrying too much about different things: 1 = Several days Trouble relaxin = Several days Being so restless that it is hard to sit still: 1 = Several days Becoming easily annoyed or irritable: 1 = Several days Feeling afraid as if something awful might happen: 1 = Several days Total ROBERTA-7 score (0-4 normal; 5-9 mild; 10-14 moderate; 15-21 severe): 7 Source: Developed by Drs. Jose L Abreu, Lana Traore, Randy Munson and colleagues, with an educational tariq from [employer]. ROBERTA-7 Assessment Billing ROBERTA-7 Assessment Tool: ROBERTA-7 Assessment 05813 Review of Systems Const Denies body aches, Denies fatigue, Denies fever(s), Denies frequent falls, Denies headache(s) and Denies weakness Eyes Reports no additional complaints, Denies change in vision and Reports requires corrective lenses ENT Denies dizziness, Denies facial pain, Denies headache(s) and Denies nasal congestion Card Denies chest pain, Denies syncope, Denies irregular heart rhythm, Denies leg edema, Denies lightheadedness and Denies dyspnea Resp Denies cough and Denies dyspnea GI Denies abdominal pain, Denies constipation, Denies dyspepsia, Denies diarrhea, Denies nausea and Denies vomiting Denies dysuria, Denies urinary frequency, Denies urinary hesitancy and Denies urinary urgency Musc Denies back pain and Denies myalgias Skin/Breast Reports system reviewed and no additional complaints, except as documented Neuro Denies dizziness, Denies syncope, Denies frequent falls, Denies headache(s) and Denies weakness Psych Reports no additional complaints Endo Denies fatigue Physical exam (Primary Care) Vital Signs: Last Vital Signs Temp 97.1 F 01/08/25 08:13 Pulse 76 01/08/25 08:13 BP 140/64 H 01/08/25 08:13 Pulse Ox 96 01/08/25 08:13 Oxygen Delivery Method Room Air 01/08/25 08:13 BMI result Body Mass Index 33.0 Tobacco/Smoking Status: Tobacco use Status Tobacco use date assessed 01/08/25 01/08/25 08:16 Patient Tobacco Use Status Never used Tobacco 01/08/25 08:17 Tobacco use type Cigarette 01/08/25 08:17 e-Cigarette/Vaping Use Former Use 01/08/25 08:17 PHQ-9: PHQ-9 Score PHQ-9: Total score 4 01/08/25 08:28 Depression Screening Interpretation: Positive Depression Screening Follow-up: Existing condition and In treatment Thrive Assessment: Date of Thrive Assessment Date Thrive assessed 07/06/24 01/08/25 08:16 Currently or been in a relationship where the following occur: No concerns reported Const General: cooperative, healthy appearing, comfortable and no acute distress Orientation/consciousness: patient oriented x3 HENMT Head: Yes normocephalic Ears: hearing grossly normal bilaterally, external ears normal, TM's normal bilaterally and EAC's normal General nose exam: Normal external nose present Face and sinus: Yes normal facial exam and Yes sinuses nontender Mouth: Normal oral and palatal mucosa present and tongue normal Throat: Yes posterior oropharynx normal Eyes General: appearance normal, both eyes and all related structures Conjunctivae: conjunctivae normal Pupils: Equal, round and reactive pupils present EOM: EOMs intact bilaterally and No Nystagmus present Neck Neck: Yes normal visual inspection, Yes full ROM and Yes no lymphadenopathy Chest Chest palpation & inspection: normal inspection of the chest Resp Effort & Inspection: normal respiratory effort Auscultation: clear to auscultation bilaterally, no crackles, no rales, no rhonchi, no wheezes and breath sounds present Cardio Rate: regular rate Rhythm: regular rhythm Peripheral pulses: radial pulses present and dorsalis pedis present GI Inspection: Yes normal to inspection and No Abdominal wall edema Palpation (GI): Soft to palpation, not firm and nontender Auscultation: normal bowel sounds Rectal Exam - Male: Yes deferred General: Yes no CVA tenderness Back/Spine/Pelvis Back: no CVA tenderness Skin General skin exam: no rashes or lesions noted Neuro General: patient oriented x3 Cranial nerves: Yes Equal, round and reactive pupils present, Yes Midline tongue present, Yes Ability to bilaterally elevate shoulders present and No Nystagmus present Gait exam (Neuro): Normal gait present Extrem Other: Very mild right great toe swelling without signs of infection and no overlying skin changes General: Yes normal to inspection, Yes full ROM, No no pedal edema and No edema Psych Speech and movement: Normal speech and movement present Affect: normal affect Insight: Good insight present (Psych) Judgement: Good judgement present (Psych) Immunizations Recombivax HB (PF) 10 mcg/mL intramuscular suspension Performing Provider: Rafaela Ramirez PA-C [facility] Administered by: Madelin Guerra RN on 01/08/25 08:32 Dose Route Admin Location Dispensed Lot Number Expiration Date [facility] [employer] 1 mL IM Right Deltoid 1 mL [id number] 01/02/27 [id number] [employer] Total Dispensed Waste 1 mL 0 % VIS Given Date VIS Provided VIS Publication Date 01/08/25 Single Vaccine 22 Eligibility Eligibility Date Funding Source Not [facility] Eligible 01/08/25 Private Coding Level of Care Code Est Pt Prev Care [id number]([id number]) Diagnoses Annual physical exam Z00.00 Mild episode of recurrent major depressive disorder F33.0 Active/Remission status: currently active Depression Type: major depressive disorder Major depression episode severity: mild Major depression recurrence: recurrent Anxiety F41.9 Obesity (BMI 30-39.9) E66.9 Fatty liver K76.0 Screening for STD (sexually transmitted disease) Z11.3 Nephrolithiasis N20.0 Toe swelling M79.89 Additional Codes ROBERTA-7 Assessment Billing - ROBERTA-7 Assessment Tool: ROBERTA-7 Assessment 31275 ([id number]) PHQ-9 - 20657 - PHQ-9 Billing: Yes ([id number]) Assessment & Plan Assessment & Plan (1) Annual physical exam: Code(s): Z00.00 - Encounter for general adult medical examination without abnormal findings Category: Medical Plan: Patient is up-to-date on all recommended routine screenings and vaccinations for his age. Blood work is up-to-date and has been reviewed with the patient today. Plan to follow up yearly or sooner as needed (2) Depression: Comment: [facility] every 2 months, counselor every 2 weeks ([facility]) Code(s): F32.A - Depression, unspecified Category: Medical Qualifiers: Active/Remission status: currently active Depression Type: major depressive disorder Major depression episode severity: mild Major depression recurrence: recurrent Qualified Code(s): F33.0 - Major depressive disorder, recurrent, mild Plan: Patient is currently following with [facility] every 2 months and on venlafaxine. He also follows with a counselor every 2 weeks and finds this beneficial. (3) Anxiety: Comment: [facility] every 2 months, counselor every 2 weeks ([facility]) Code(s): F41.9 - Anxiety disorder, unspecified Category: Medical Plan: See plan above (4) Obesity (BMI 30-39.9): Code(s): E66.9 - Obesity, unspecified Category: Medical Plan: Healthy diet and regular exercise is encouraged. Noted 18 lb weight loss since last visit due to diet and exercise. (5) Fatty liver: Code(s): K76.0 - Fatty (change of) liver, not elsewhere classified Category: Medical Plan: Healthy diet and regular exercise is encouraged. Continue to monitor LFTs (6) Screening for STD (sexually transmitted disease): Code(s): Z11.3 - Encounter for screening for infections with a predominantly sexual mode of transmission Category: Medical (7) Nephrolithiasis: Code(s): N20.0 - Calculus of kidney Category: Medical Plan: Patient has one 3 mm nonobstructing stone in the right kidney likely to passive his own. Advised patient to drink plenty of water and if he should develop symptoms to reach out to the office. (8) Toe swelling: Code(s): M79.89 - Other specified soft tissue disorders Category: Medical Plan: Very mild toe swelling over the right great toe. Advised patient to ice the area and reviewed signs of infection and when to reach out to the office. Plan The patient will continue with lifestyle modifications, focusing on diet and exercise to manage fatty liver disease. Regular follow-up appointments will be scheduled to monitor liver function and ensure compliance with dietary recommendations. For the kidney stones, the patient is advised to maintain adequate hydration to facilitate the passage of the stone. If symptoms worsen or new symptoms arise, further evaluation by a urologist may be considered. The patient is currently on a vitamin D supplement to address the deficiency and will continue this regimen. Follow-up blood tests may be conducted to monitor vitamin D levels. Regarding the left big toe, the patient is advised to monitor for signs of infection, such as increased redness, swelling, or pain. If these symptoms occur, medical evaluation will be necessary to consider antibiotic treatment. This note was constructed using voice recognition software. While every effort has been made to ensure accuracy and bagger and stock handler helper, still areas may have been included sometimes these areas may affect the content or meeting of the given symptoms. Total time spent caring for the patient today was 30 minutes. This includes time spent before the visit reviewing the chart, time spent during the visit, and time spent after the visit and documentation. Patient was informed and verbally consented to the use of an ambient scribe for clinic note documentation during this visit. Orders: Orders Hepatitis B Adult Immunization Today Z23 - Encounter for immunization Syphilis Screen Today Z11.3 - Encounter for screening for infections with a predominantly sexual mode of transmission CT NG by PCR Urine Today Z11.3 - Encounter for screening for infections with a predominantly sexual mode of transmission HIV Ab/Ag Today Z11.3 - Encounter for screening for infections with a predominantly sexual mode of transmission
[2025-01-08 08:13] VITALS: BP 140/64; PULSE 76; TEMP 36.2; O2SAT 96; BMI 33.0
[2025-01-08 08:33] VITALS: BP 118/66
== END 2025-01-08 08:47 | disposition home or self-care (01) ==
LOC: HO.HMCH 07:51
DX: Z00.00 Encounter for general adult medical examination without abnormal findings (principal); F33.0 Major depressive disorder, recurrent, mild; F41.9 Anxiety disorder, unspecified; K76.0 Fatty (change of) liver, not elsewhere classified; Z11.3 Encounter for screening for infections with a predominantly sexual mode of transmission; N20.0 Calculus of kidney; M79.89 Other specified soft tissue disorders

== ENCOUNTER → 2025-01-08 07:50 | Outpatient (BNVA) | payer OTHER, SELFPAY | DX: Z00.00 Encounter for general adult medical examination without abnormal findings (principal); Z23 Encounter for immunization; F33.0 Major depressive disorder, recurrent, mild; F41.9 Anxiety disorder, unspecified; E66.9 Obesity, unspecified; Z68.33 Body mass index [BMI] 33.0-33.9, adult; K76.0 Fatty (change of) liver, not elsewhere classified; N20.0 Calculus of kidney; M79.89 Other specified soft tissue disorders; Z13.31 Encounter for screening for depression | CPT/HCPCS: 90471; 90746; 96127; 99395 ==

== ENCOUNTER 2025-01-08 08:50 | Outpatient (REF) | payer OTHER, SELFPAY ==
[2025-01-08 11:25] LABS: Syphilis Screen Nonreactive (Nonreactive)
[2025-01-08 11:27] LABS: HIV Num 1 0.06 S/CO (0.00-0.99)
[2025-01-08 12:39] LABS: CT PCR Urine NOT DETECTED (Not Detect.); NG PCR Urine NOT DETECTED (Not Detect.)
== END 2025-01-08 08:51 | disposition home or self-care (01) ==
LOC: HO.10HDL 08:50
DX: Z11.3 Encounter for screening for infections with a predominantly sexual mode of transmission (principal); Z23 Encounter for immunization
CPT/HCPCS: 36415; 86780; 87389; 87491; 87591